=== PATIENT | male | born 1990 | race Caucasian/White ===

== ENCOUNTER 2021-07-27 13:13 | Emergency (ER) | payer OTHER ==
[~2021-07-27] VITALS: Ht 180.3 cm; Wt 83.9 kg
[~2021-07-27 13:13] MED LIST: CYCLOBENZAPRINE10 MG PO; NORCO 7.5-3251 EACH PO; VITAMIN C500 M1 PO
[2021-07-27] MEDS ORDERED: ZINC30 MG PO (13:58)
== END 2021-07-27 16:29 | disposition home or self-care (01) ==
LOC: ED 13:13
DX: S16.1XXA Strain of muscle, fascia and tendon at neck level, initial encounter (principal); S39.012A Strain of muscle, fascia and tendon of lower back, initial encounter; S29.012A Strain of muscle and tendon of back wall of thorax, initial encounter; F17.200 Nicotine dependence, unspecified, uncomplicated; Z79.899 Other long term (current) drug therapy; V89.2XXA Person injured in unspecified motor-vehicle accident, traffic, initial encounter
CPT/HCPCS: 72040; 72070; 72100; 99284-25

== ENCOUNTER 2023-02-02 14:56 | Emergency (ER) | payer OTHER ==
[~2023-02-02] VITALS: Ht 180.3 cm; Wt 86.3 kg
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
[~2023-02-02 14:56] MED LIST changes: +GINGER ROOT1 GM MISC; +TURMERIC500 M3 PO; +ZINC30 MG PO
[2023-02-02 16:41] LABS: BASOPHILS 0.5 % (0-2); HEMOGLOBIN 17.7 g/dL (12.0-18.0); MONOCYTES 15.1 % (0-12)
[2023-02-02 16:42] LABS: EOSINOPHILS 0.3 % (0-6); HEMATOCRIT 52.1 % (35.0-50.0); LYMPHOCYTES 15.7 % (24-44); MCH 29.4 (27-36); MCHC 33.9 g/dl (30-36); MCV 86.6 fl (81-99); NEUTROPHILS 68.4 % (39-80); PLATELET COUNT 291 K/uL (140-440); RBC 6.01 M/ul (4.3-5.7); RDW 13.8 (10.5-15.0)
[2023-02-02 16:52] LABS: BILIRUBIN, URINE POSITIVE (negative); BLOOD/HGB, URINE TRACE-I (Negative); KETONE, URINE TRACE (Negative); LEUK ESTERASE, URINE NEGATIVE (negative); NITRITE, URINE NEGATIVE (negative)
[2023-02-02 16:56] LABS: ALBUMIN 4.4 g/dL (3.4-5.0); ALBUMIN/GLOBULIN RATIO 1.07 (1.1-2.4); ANION GAP 16.8 (7-21); BILIRUBIN, TOTAL 0.5 ng/dL (0.2-1.0); BUN/CREATININE RATIO 12.84 (6.0-28.6); CALCIUM 9.5 mg/dL (8.5-10.1); CREATININE, SERUM 1.09 mg/dL (0.70-1.30); POTASSIUM 3.8 mmol/L (3.5-5.1); PROTEIN, TOTAL 8.5 g/dL (6.4-8.2)
[2023-02-02 17:05] LABS: BACTERIA, URINE NONE SEEN /hpf (negative); CASTS, URINE NONE SEEN \\lpf; COLLECTION TYPE, URINE CLEAN CATCH; CRYSTALS, URINE NONE SEEN (0-1+); EPITHELIAL CELLS, URINE SQUAMOUS 1+ /lpf (0-1+); RED BLOOD CELLS, URINE 0-1 /hpf (0-5); REFLEX CULTURE, URINE No (No); WHITE BLOOD CELLS, URINE 0-1 /HPF (0-5)
[2023-02-02 17:09] LABS: INFLUENZA B NAA NEGATIVE (NEGATIVE); RESPIRATORY SYNCYTIAL VIR NAA NEGATIVE (NEGATIVE)
[2023-02-02] MEDS ORDERED: CYCLOBENZAPRINE10 MG PO (17:16)
[2023-02-02] MEDS ORDERED: ONDANSETRON ODT8 MG PO (17:16)
[2023-02-02 17:34] VITALS: BP 117/74
== END 2023-02-02 17:33 | disposition home or self-care (01) ==
LOC: ED 14:56
PROVIDERS: Family Medicine
DX: U07.1 COVID-19 (principal); F17.200 Nicotine dependence, unspecified, uncomplicated; Z79.899 Other long term (current) drug therapy
CPT/HCPCS: 36415; 80053; 81001; 83690; 85025; 85060; 87502; C9803; J1885; J2405; J7030; U0002

== ENCOUNTER 2023-11-16 10:18 | Emergency (ER) | payer OTHER ==
[~2023-11-16] VITALS: Ht 180.3 cm; Wt 84.4 kg
[~2023-11-16 10:18] MED LIST changes: +ONDANSETRON ODT8 MG PO
[2023-11-16] MEDS ORDERED: TYLENOL EXTRA500 MG PO (10:36)
[2023-11-16] MEDS ORDERED: ADVIL200 MG PO (10:36)
[2023-11-16] MEDS ORDERED: HYDROCODON-ACE1 EA11 PO (11:02)
[2023-11-16 11:10] VITALS: BP 129/89
== END 2023-11-16 11:10 | disposition home or self-care (01) ==
LOC: ED 10:18
DX: M54.50 Low back pain, unspecified (principal); F17.200 Nicotine dependence, unspecified, uncomplicated; Z79.899 Other long term (current) drug therapy
CPT/HCPCS: 99283